=== PATIENT | male | born 1950 | race Caucasian/White ===

== ENCOUNTER → 2019-04-12 09:35 | Outpatient (CLI) | payer MEDICARE, MEDICAID, SELFPAY ==
--- NOTE | 2019-04-12 | DI.US.S_ITS ---
PROCEDURE: US SOFT TISSUE HEAD AND NECK INDICATIONS: NICOTINE DEPENDENCE, GENERALIZED ENLARGED LYMPH NODES TECHNIQUE: Real-time scanning was performed of the neck region of interest, with image documentation. COMPARISON: [facility], RG, CT SOFT TISSUE NECK WITH CONTRAST, 03/05/2004, 16:31. [facility], CT, CT CHEST WO CON, 04/12/2019, 9:53. FINDINGS: Morphologically normal appearing lymph node corresponds to the palpable abnormality within the right and left neck adjacent to the submandibular glands, each measuring up to 4 mm in maximal AP diameter. There are additionally multiple bilateral normal appearing lymph nodes present. Palpable right neck abnormality corresponds to a morphologically normal appearing lymph node measuring 2 mm. IMPRESSION: 1. Palpable abnormalities corresponding to morphologically normal appearing lymph nodes. No lymphadenopathy by size criteria. Recommend clinical followup to demonstrate resolution. Dictated by: Huan MENDOZA Interpreted: Dom Holland MD on 04/12/2019 at 11:20 Approved by: Dom Holland M.D. on 04/12/2019 at 15:42
--- NOTE | 2019-04-12 09:53 | DI.CT.S_ITS ---
PROCEDURE: CT CHEST WO CON INDICATIONS: Nicotine dependence,Generalized enlarged lymph nodes TECHNIQUE: Noncontrast 5 mm thick sections acquired from the pulmonary apices to the posterior costophrenic angles. 1 mm lung window, 5 mm thick coronal and sagittal and 7 mm axial MIP reformats were then acquired. For radiation dose reduction, the following was used: automated exposure control, adjustment of mA and/or kV according to patient size. COMPARISON: [facility], , US SOFT TISSUE HEAD AND NECK, 04/12/2019, 10:06. CR, CHEST 2 VIEW, 04/04/2007, 13:32. FINDINGS: Image quality: Excellent. Lungs and pleura: There is moderate to severe emphysema. A 9 mm subpleural nodule is seen in the right lower lobe just above the right hemidiaphragm (series 3 image 353). No acute air space opacities. There are subpleural scars and atelectasis in right middle lobe and lingula. No pleural effusions or pneumothorax. Central and peripheral airways are patent and normal in caliber. Mediastinum: Heart size is normal. No pericardial effusion. No mediastinal adenopathy by size criteria. Thoracic aorta and central pulmonary arteries are normal in size. There is moderate atherosclerosis. Esophagus is normal in caliber. No hiatal hernia. Bones and chest wall: No suspicious bony lesions. No vertebral body compression fractures. No axillary or supraclavicular adenopathy by size criteria. Thyroid gland is normal. Abdomen: Visualized upper abdominal solid organs and bowel loops appear normal in the absence of contrast. There are small foci of calcification seen kidneys bilaterally, compatible with nonobstructive renal stones. IMPRESSION: 1. A 9 mm subpleural nodule in the right lower lobe just above the right hemidiaphragm. Please see enclosed followup recommendation. 2. No mediastinal lymphadenopathy. 3. Moderate to severe emphysema. 4. Bilateral small nonobstructive renal calculi. Fleischner Society criteria for SOLID lung nodule followup. Nodule size (mm)Low-risk patientHigh-risk patient?4No follow-up neededFollow-up at 12 mo; if no change, no further follow-up>[id number] CT at 12 mo; if no change, no further follow-up needed.Initial follow-up CT at 6-12 mo, then 18-24 mo if no change. >6-8Initial follow-up CT at 6-12 mo, then 18-24 mo if no change. Initial follow-up CT at 3-6 mo, then 9-12 mo and 24 mo if no change. >8Follow-up CT at 3, 9, 24 mo. Or PET and/or biopsy.Same as for low-risk pts. Fleischner Society criteria for SUB-SOLID lung nodule followup. Solitary pure ground-glass nodules5 mm or lessNo followup needed. >5 mm3 mo follow-up CT to confirm persistence. Then annual CT for 3 years. Part-solid nodules3 mo follow-up CT to confirm persistence. If persistent with solid component <5 mm, annual CT for at least 3 years. If solid component is 5 mm or more, biopsy or surgical resection. Consider PET-CT for lesions > 10 mm. Multiple sub-solid nodulesPure ground glass nodules [address] at 2 and 4 years. Pure ground glass nodules >5 mm without dominant lesion. [address] to confirm persistence, then annual followup CT for at least 3 years. Dominant nodule(s) with part-solid or solid component. [address] to confirm persistence. If persistent, consider biopsy or surgical resection, kelley if lesions have >5 mm solid component. Dictated by: Gabriela Stroud M.D. on 04/12/2019 at 14:40 Approved by: Gabriela Stroud M.D. on 04/12/2019 at 18:29
== END ==
PROVIDERS: PCP Family Medicine; Visit Provider Family Medicine
DX: R59.1 Generalized enlarged lymph nodes (principal); F17.210 Nicotine dependence, cigarettes, uncomplicated
CPT/HCPCS: 71250; 76536

== ENCOUNTER → 2019-08-18 09:01 | Outpatient (CLI) | payer MEDICARE, MEDICAID, SELFPAY ==
--- NOTE | 2019-08-18 | DI.MRI.S_ITS ---
PROCEDURE: MR CERVICAL SPINE WO CON INDICATIONS: Other spondylosis with myelopathy, cervical region TECHNIQUE: Noncontrast sagittal T1 spin echo and T2 fast spin echo, sagittal STIR, foraminal oblique sagittal T2 fast spin echo, and axial gradient echo or T2 fast spin echo through the cervical spine. COMPARISON: None. FINDINGS: Image quality: Diagnostic quality. However, patient motion artifact degrades image quality. Alignment and Curvature: Trace degenerative retrolisthesis of C5 on C6. Trace degenerative anterolisthesis of C4 on C5. Mild degenerative anterolisthesis of C3 on C4 measuring 4 mm. Bone Marrow: Marrow demonstrates normal overall signal. Spinal Cord: Because of patient motion artifact, it is difficult to exclude cord signal abnormalities. The cord is of normal caliber. No cerebellar tonsillar herniation. Paraspinous Soft Tissues: No paravertebral masses. Prevertebral soft tissues are normal in thickness. C2-C3: No canal stenosis. Bilateral uncovertebral joint hypertrophy. Bilateral facet hypertrophy. Mild to moderate right foraminal narrowing and mild left foraminal narrowing. C3-C4: Diffuse disc bulge. Mild canal stenosis. Bilateral uncovertebral joint hypertrophy and prominent facet hypertrophy. Severe bilateral foraminal narrowing with bilateral C4 nerve root impingement. C4-C5: Mild anterolisthesis of C4 on C5. Disc bulge. Mild canal stenosis. Bilateral uncovertebral joint hypertrophy and bilateral facet hypertrophy. Severe bilateral foraminal narrowing with bilateral C5 nerve root impingement. C5-C6: Severe chronic disc disc height loss. Posterior disc plus osteophyte. Moderate central canal stenosis. Bilateral uncovertebral joint hypertrophy. Bilateral facet hypertrophy. Severe right foraminal narrowing with right C6 nerve root impingement. Moderate left foraminal narrowing with flattening deformity upon the exiting left C6 nerve root. C6-C7: Severe chronic disc height loss. Diffuse posterior disc plus osteophyte resulting in severe canal stenosis. Bilateral uncovertebral joint hypertrophy and facet hypertrophy. Focal left foraminal disc protrusion. Severe bilateral foraminal narrowing with bilateral C7 nerve root impingement. C7-T1: Disc bulge. No canal stenosis. Moderate right foraminal narrowing with flattening deformity on the right C8 nerve root. Mild left foraminal narrowing. IMPRESSION: 1. Extensive cervical spondylitic change. 2. Canal stenosis is mild at C3-C4, mild at C4-C5, moderate at C5-C6, and severe at C6-C7. 3. Multilevel severe foraminal narrowing as described above. Severe foraminal narrowing is present bilaterally at C3-C4 and C4-C5, on the right at C5-C6, and bilaterally at C6-C7. 4. At C6-C7, a left foraminal disc protrusion contributes to left C7 foraminal narrowing. 5. Multilevel facet arthropathy. Dictated by: Narayan Stack M.D. on 08/18/2019 at 10:59 Approved by: Narayan Stack M.D. on 08/18/2019 at 11:36
== END ==
PROVIDERS: PCP Family Medicine; Referring Provider Orthopaedic Surgery Orthopaedic Surgery of the Spine; Visit Provider Orthopaedic Surgery Orthopaedic Surgery of the Spine
DX: M47.12 Other spondylosis with myelopathy, cervical region (principal); M48.02 Spinal stenosis, cervical region; M50.023 Cervical disc disorder at C6-C7 level with myelopathy; M50.123 Cervical disc disorder at C6-C7 level with radiculopathy
CPT/HCPCS: 72141

== ENCOUNTER → 2019-09-29 06:23 | Outpatient (CLI) | payer MEDICARE, MEDICAID, SELFPAY ==
[2019-09-29 07:40] LABS: BUN Creatinine Ratio 21.3 (6-22); Blood Urea Nitrogen 16 mg/dL (9-20); Calcium 9.8 mg/dL (8.4-10.2); Carbon Dioxide 27 mmol/L (22-32); Chloride 98 mmol/L (98-107); Estimated Glomerular Filt Rate > 60.0 mL/min (>60); Glucose 97 mg/dL (80-110); HEMOLYSIS < 15 (0-50); Potassium 4.6 mmol/L (3.4-5.1); Sodium 134 mmol/L (137-145)
--- NOTE | 2019-09-29 07:54 | DI.CT.S_ITS ---
PROCEDURE: CT CHEST W CON INDICATIONS: chest nodule TECHNIQUE: After the administration of intravenous contrast, 5 mm thick sections acquired from the pulmonary apices to the posterior costophrenic angles. 1 mm axial lung, 5 mm thick coronal and sagittal reformats and 7 mm axial MIP were acquired. For radiation dose reduction, the following was used: automated exposure control, adjustment of mA and/or kV according to patient size. COMPARISON: [facility], [place], PET NECK TO MID THIGH, 04/25/2019, 9:55. [facility], CT, CT CHEST WO CON, 04/12/2019, 9:53. FINDINGS: Image quality: Excellent. Lungs and pleura: No acute air space opacities. No pleural effusions or pneumothorax. Central and peripheral airways are patent and normal in caliber. The previously identified right lower lobe nodule currently measures 10 mm AP by 11 mm transverse compared to 8 mm AP by 9 mm transverse. Diffuse emphysematous changes are present. Mediastinum: Heart size is normal. No pericardial effusion. No mediastinal or hilar adenopathy by size criteria. Thoracic aorta and central pulmonary arteries are normal in size. Esophagus is normal in caliber. No hiatal hernia. Bones and chest wall: No suspicious bony lesions. No vertebral body compression fractures. No axillary or supraclavicular adenopathy by size criteria. Thyroid gland is unremarkable. Abdomen: Visualized upper abdominal solid organs appear normal. Upper abdominal bowel loops are normal in caliber. IMPRESSION: 1. Small interval increase in size of previous identified right lower lobe nodule as above. Given the small interval increase, this could be secondary to volume averaging. However, as noted on PET scan, low-grade neoplasm cannot be excluded. Short interval imaging followup is recommended, given location and significant emphysematous change, percutaneous biopsy access would be difficult. Dictated by: Vani Kelly M.D. on 09/29/2019 at 8:40 Approved by: Vani Kelly M.D. on 09/29/2019 at 8:47
== END ==
PROVIDERS: PCP Family Medicine; Referring Provider Family Medicine; Visit Provider Family Medicine
DX: R91.1 Solitary pulmonary nodule (principal)
CPT/HCPCS: 36415; 71260; 80048; Q9967

== ENCOUNTER → 2020-02-02 08:04 | Outpatient (CLI) | payer MEDICARE, MEDICAID, SELFPAY ==
--- NOTE | 2020-02-02 08:14 | DI.CT.S_ITS ---
PROCEDURE: CT CHEST WO CON INDICATIONS: Other nonspecific abnormal finding of lung field TECHNIQUE: Noncontrast 5 mm thick sections acquired from the pulmonary apices to the posterior costophrenic angles. 1 mm lung window, 5 mm thick coronal and sagittal and 7 mm axial MIP reformats were then acquired. For radiation dose reduction, the following was used: automated exposure control, adjustment of mA and/or kV according to patient size. COMPARISON: [facility], CR, XR CHEST 1 VIEW, 10/26/2019, 6:16. [facility], CR, XR CHEST 2 VIEWS, 10/26/2019, 10:21. [facility], CR, XR CHEST 1 VIEW, 10/25/2019, 14:14. [facility], CR, XR CHEST 2 VIEWS, 10/20/2019, 8:32. [facility], CT, CT CHEST W CON, 09/29/2019, 7:41. [facility], CR, XR CHEST 2 VIEWS, 01/25/2020, 11:16. [facility], [place], PET NECK TO MID THIGH, 04/25/2019, 9:55. [facility], CT, CT CHEST WO CON, 04/12/2019, 9:53. FINDINGS: Image quality: Excellent. Lungs and pleura: There is a 1.8 x 2.3 cm lobulated/spiculated mass in the superior segment of right upper lobe, new since the last chest CT dated 09/29/2019. There is right basilar surgical suture and scars. Severe emphysema. No acute air space opacities. No pleural effusions or pneumothorax. Central and peripheral airways are patent and normal in caliber. Mediastinum: Heart size is normal. No pericardial effusion. No mediastinal adenopathy by size criteria. Thoracic aorta and central pulmonary arteries are normal in size. Esophagus is normal in caliber. Small hiatal hernia. Bones and chest wall: No suspicious bony lesions. No vertebral body compression fractures. No axillary or supraclavicular adenopathy by size criteria. Thyroid gland is normal . Abdomen: There are multiple renal calculi bilaterally. No hydronephrosis. IMPRESSION: 1. A 1.8 x 2.3 cm lobulated/spiculated mass in the superior segment of right upper lobe, new since the last chest CT dated 09/29/2019. This finding is concerning for lung cancer. PET-CT is suggested for further evaluation. This mass can be sampled percutaneously under CT guidance for tissue diagnosis. 2. Right basilar surgical suture and scars. 3. Severe emphysema. 4. Nonobstructive renal calculi bilaterally. Dictated by: Gabriela Stroud M.D. on 02/02/2020 at 9:50 Approved by: Gabriela Stroud M.D. on 02/02/2020 at 10:12
== END ==
PROVIDERS: PCP Family Medicine; Referring Provider Family Medicine; Visit Provider Thoracic Surgery (Cardiothoracic Vascular Surgery)
DX: R91.8 Other nonspecific abnormal finding of lung field (principal); J98.4 Other disorders of lung; J43.9 Emphysema, unspecified; N20.0 Calculus of kidney
CPT/HCPCS: 71250

== ENCOUNTER → 2021-04-09 12:24 | Outpatient (CLI) | payer MEDICARE, MEDICAID, SELFPAY ==
--- NOTE | 2021-04-09 | DI.ECHO.S_ITS ---
[facility]+ [facility] +---------+ : : [address] : : : : [id number] : : : : Phone: [phone]+ Echocardiogram Report + + :Name: DAVONTE CARL Study Date: 04/09/2021 Height: 73 in : :[facility] ReadingLocation: Weight: 135 lb : : Gender: Male BSA: 1.8 m2 : :: 1950 Age: 71 yrs BP: 133/93 mmHg: :Reason For Study: ATRIAL FIBRILLATION : :Ordering Physician: ARELY, : :ISAC Performed By: Jenny Kwan : :Referring: ISAC BAY : + + Interpretation Summary The left ventricle is normal in size and wall thickness. Left ventricular systolic function is severely reduced. The ejection fraction is estimated to be 20-25%. LVEF has not changed since prior study. Left ventricular global longitudinal strain average is -8.9%. There is severe global hypokinesis of the left ventricle. There is a significant dyssynchronous contraction pattern, consistent with a conduction abnormality. Diastolic function could not be accurately assessed due to contradictory data. The right ventricle is borderline dilated. The right ventricular systolic function is normal. The right ventricular systolic pressure is estimated to be at least 33 mmHg based on an estimated right atrial pressure of 3 mm Hg. The left atrium is mildly dilated. Right atrial size is normal. There is mild to moderate mitral regurgitation. There is mild to moderate tricuspid regurgitation. The aortic root is normal size. Procedure: A two-dimensional transthoracic echocardiogram with color flow and Doppler was performed. The study quality was technically adequate. Comparison is made with the echocardiogram of 12/02/2020. The patient was in atrial fibrillation with heart rates between 85-115 bpm during the exam. Left Ventricle: The left ventricle is normal in size and wall thickness. Left ventricular systolic function is severely reduced. The ejection fraction is estimated to be 20-25%. Left ventricular global longitudinal strain average is -8.9%. There is severe global hypokinesis of the left ventricle. There is a significant dyssynchronous contraction pattern, consistent with a conduction abnormality. Diastolic function could not be accurately assessed due to contradictory data. Right Ventricle: The right ventricle is borderline dilated. The right ventricular systolic function is normal. Atria: The left atrium is mildly dilated. Right atrial size is normal. There is no Doppler evidence for an interatrial shunt. Mitral Valve: The mitral valve leaflets appear mildly thickened, but open well. There is mild to moderate mitral regurgitation. Aortic Valve: The aortic valve is not well visualized. The aortic valve opens well. There is no aortic valve stenosis. No aortic regurgitation is present. Tricuspid Valve: The tricuspid valve leaflets are thin and pliable. There is mild to moderate tricuspid regurgitation. The right ventricular systolic pressure is estimated to be at least 33 mmHg based on an estimated right atrial pressure of 3 mm Hg. Pulmonic Valve: There is no pulmonic valvular regurgitation. Great Vessels: The aortic root is normal size. The ascending aorta could not be visualized. The IVC is of normal diameter and collapses greater than 50% with a sniff. This suggests a low right atrial pressure of 3 mm Hg. Pericardium/ Pleura There is no pericardial effusion. There is no pleural effusion. MMode/2D Measurements & Calculations LVIDd: 5.0 cm LVOT diam: 2.2 cm LVIDs: 4.2 cm Ao root diam: 3.7 cm FS: 17.0 % Ao Arch Diam (Prox Trans): 2.5 cm IVSd: 0.77 cm LVPWd: 0.86 cm LV ortega. diameter/BSA (cm/m^2): 2.8 LV sys. diameter/BSA (cm/m^2): 2.3 LA A2 area: 22.4 cm2 RA long axis: 5.1 cm LA A4 area: 21.0 cm2 RA area: 18.9 cm2 LA length (vol): 5.6 cm RA vol: 59.9 ml LA vol: 71.0 ml RA : 32.9 ml/m2 LA vol index: 39.0 ml/m2 IVC diam: 1.1 cm RVD1 (basal): 4.1 cm TAPSE: 1.6 cm Doppler Measurements & Calculations Ao V2 max: 106.5 cm/sec LVOT Max Antoni: 63.2 cm/sec Ao V2 mean: 73.9 cm/sec LV V1 max P.6 mmHg Ao max P.6 mmHg LV V1 VTI: 7.7 cm Ao mean P.5 mmHg REGAN(I,D): 1.9 cm2 Ao V2 VTI: 15.8 cm REGAN(V,D): 2.2 cm2 sev ratio: 0.49 REGAN indexed to BSA (cm^2/m^2): 1.0 MV E max antoni: 64.2 cm/sec TR max antoni: 274.9 cm/sec MV A max antoni: 28.4 cm/sec TR max P.2 mmHg MV E/A: 2.3 PA pr(Accel): 37.9 mmHg Med Peak E' Antoni: 8.6 cm/sec E/E' med: 7.5 Lat Peak E' Antoni: 8.2 cm/sec E/E' lat: 7.8 E/e' average: 7.7 MV dec time: 0.11 sec SV(LVOT): 29.3 ml Reading Physician:05:51 PM
--- NOTE | 2021-04-09 12:34 | DI.CT.S_ITS ---
PROCEDURE: CT CHEST WO CON INDICATIONS: Permanent atrial fibrillation,Malignant neoplasm of lower lobe, right bronchus or lung TECHNIQUE: Noncontrast 2.0-2.5 mm thick sections acquired from the pulmonary apices to the posterior costophrenic angles. 7 mm thick axial MIP and 5 mm coronal and sagittal reformats were then acquired. A low radiation dose technique was utilized. COMPARISON: [facility], CT, CT CHEST WO CON, 02/02/2020, 8:13. FINDINGS: Image quality: Diagnostic, given the low radiation dose technique. Lungs and pleura: Advanced centrilobular and paraseptal emphysematous changes. Redemonstrated suture line in the right lower lobe with associated scarring/atelectasis. Superior segment, right lower lobe mass: April 09, 2021: 2.5 x 1.5 cm; series 3, image 176 February 02, 2020: 1.8 x 2.3 cm Mediastinum: Heart size is normal. No pericardial effusion. No mediastinal adenopathy by size criteria. Thoracic aorta and central pulmonary arteries are normal in size. Esophagus is normal in caliber. Trace hiatal hernia. Bones and chest wall: No suspicious bony lesions. No vertebral body compression fractures. No axillary or supraclavicular adenopathy by size criteria. Thyroid gland demonstrates homogeneous attenuation. Abdomen: Visualized upper abdomen solid organs and bowel loops appear normal in the absence of contrast. IMPRESSION: 1. Persistent mass in the superior segment of the right upper lobe, concerning for neoplastic process and increased in size compared to the prior examination. Consider CT guided biopsy or PET/CT for further evaluation. Dictated by: Osvaldo Mckeon M.D. on 04/09/2021 at 17:04 Approved by: Osvaldo Mckeon M.D. on 04/09/2021 at 17:13
== END ==
PROVIDERS: PCP Family Medicine; Referring Provider Radiology Radiation Oncology; Visit Provider Radiology Radiation Oncology
DX: I08.1 Rheumatic disorders of both mitral and tricuspid valves (principal); C34.31 Malignant neoplasm of lower lobe, right bronchus or lung; I48.21 Permanent atrial fibrillation; R91.8 Other nonspecific abnormal finding of lung field
CPT/HCPCS: 71250; 93306